=== PATIENT | male | born 1970 | race Caucasian/White ===

== ENCOUNTER 2018-04-25 15:02 | Emergency (ER) | payer BC ==
[~2018-04-25] VITALS: Ht 180.3 cm; Wt 191.0 kg
[~2018-04-25 15:02] MED LIST: ATENOLOL100 MG PO; METOLAZONE5 MG PO; SPIRONOLACTONE25 MG PO
[2018-04-25] MEDS ORDERED: HYDROCODONE/APAP 10MG-325MG TAB PO ONE (16:00)
--- NOTE | 2018-04-25 17:15 | Diagnostic Imaging Report ---
CT scan of the LEFT ANKLE, WITHOUT injected contrast. TECHNIQUE: Standard departmental protocols were used. Sagittal and coronal reformatted images were obtained. HISTORY: Pain, concern for Achilles tendon tear, pacemaker COMPARISON: None. FINDINGS: Bones: Multiple small chronic appearing fracture fragments adjacent to the tip of the medial malleolus and lateral malleolus, the largest is anterior to the tip of the medial malleolus and measures 1 x 0.5 cm. Large plantar and moderate dorsal calcaneal enthesophytes. Os trigonum. Joints: Minimal scattered degenerative changes, most notably the tibiotalar joint. Soft Tissues: CT has limited sensitivity for evaluation of the Achilles tendon, but there is no visible complete or high-grade tear. Mild lateral superficial soft tissue edema. IMPRESSION: 1. Prominent chronic calcaneal enthesopathy. 2. Small chronic appearing unhealed avulsion fractures adjacent to the tips of the medial and lateral malleoli. 3. Within the limitations of CT, no evidence of a high-grade or complete Achilles tendon tear. Signed by: Dr. Ronny Davalos D.O., M.M.M. on 04/25/2018 5:12 PM
[2018-04-25] MEDS ORDERED: ULTRAM50 MG PO (17:37)
[2018-04-25 18:38] VITALS: BP 146/73
== END 2018-04-25 19:07 | disposition home or self-care (01) ==
LOC: ER 15:02
DX: S82.65XA Nondisplaced fracture of lateral malleolus of left fibula, initial encounter for closed fracture (principal); S82.55XA Nondisplaced fracture of medial malleolus of left tibia, initial encounter for closed fracture
CPT/HCPCS: 93971; 99284

== ENCOUNTER 2019-05-16 21:17 | Inpatient (IN) | payer BC ==
[~2019-05-16] VITALS: Ht 175.3 cm; Wt 189.6 kg
[~2019-05-16 21:17] MED LIST changes: +ULTRAM50 MG PO
[2019-05-16] MEDS ORDERED: SODIUM CHLORIDE 0.9% 1000ML 1,000 ML IV STA ×3 (21:55)
[2019-05-16] MEDS ORDERED: CEFEPIME 1GM/NS 0.9% 50 ML 50 ML IV STA (21:55)
[2019-05-16] MEDS ORDERED: ACETAMINOPHEN 325 MG TAB PO STA (21:55)
[2019-05-16] MEDS ORDERED: VANCOMYCIN 1GM/NS 250 ML 250 ML IV STA (21:55)
[2019-05-16 22:04] LABS: BASOPHILS % 0.2 % (0.0-1.0); EOSINOPHILS # (AUTO) 0.2 (0.0-0.4); HEMATOCRIT 43.2 % (38.2-49.6); HEMOGLOBIN 14.7 g/dL (14.0-18.0); LYMPHOCYTES # (AUTO) 1.3 (1.0-3.2); LYMPHOCYTES % 8.3 % (18.0-39.1); MEAN CORPUSCULAR HEMOGLOBIN 31.3 pg (28-32); MEAN CORPUSCULAR VOLUME 91.9 fL (81-99); MONOCYTES # (AUTO) 0.8 (0.2-0.8); MONOCYTES % 4.7 % (4.4-11.3); NEUTROPHILS # (AUTO) 13.8 (2.1-6.9); NEUTROPHILS % 85.4 % (38.7-80.0); PLATELET COUNT 232 x10e3/uL (140-360); RED CELL DISTRIBUTION WIDTH 12.5 % (11.7-14.4)
[2019-05-16 22:05] LABS: BILIRUBIN,URINE NEGATIVE (NEGATIVE); CLARITY,URINE SL CLOUDY (CLEAR); COLOR,URINE YELLOW (YELLOW); KETONES,URINE NEGATIVE (NEGATIVE); LEUKOCYTE ESTERASE ,URINE NEGATIVE (NEGATIVE); NITRITE,URINE NEGATIVE (NEGATIVE); PROTEIN,URINE DIPSTICK NEGATIVE (NEGATIVE); URINE UROBILINOGEN 0.2 mg/dL (0.2 - 1)
[2019-05-16 22:09] LABS: BACTERIA,URINE FEW /HPF; EPITHELIAL CELLS,URINE FEW /LPF; RBC,URINE 0-5 /HPF (0-5); WBC,URINE (MAN) 0-5 /HPF (0-5)
[2019-05-16] MEDS ORDERED: MORPHINE SULFATE INJ 4 MG/ML INJ 1ML IV PRN (22:15)
[2019-05-16 22:20] LABS: ALANINE AMINOTRANSFERASE 67 IU/L (0-55); ALBUMIN 3.5 g/dL (3.5-5.0); ALKALINE PHOSPHATASE 79 IU/L (40-150); BLOOD UREA NITROGEN 20 mg/dL (7-26); BUN/CREATININE RATIO 17 (6-25); CALCIUM 9.7 mg/dL (8.4-10.2); CARBON DIOXIDE 30 mmol/L (22-29); CHLORIDE 103 mmol/L (98-107); CREATININE, SERUM 1.15 mg/dL (0.72-1.25); EST GLOMERULAR FILTRATION RATE > 60 ML/MIN (60-); GLUCOSE 104 mg/dL (74-118); SODIUM 142 mmol/L (136-145)
--- NOTE | 2019-05-16 23:03 | Diagnostic Imaging Report ---
EXAMINATION: CHEST 2 VIEWS INDICATION: ^SEPSIS ^[id number] ^2220 ^Y COMPARISON: None available FINDINGS: PA and lateral views TUBES and LINES: Left chest wall dual-lead cardiac device in place with distal leads projecting over right atrium and right ventricle. LUNGS: Limited by low lung volumes and body habitus. Central vascular congestion. PLEURA: No pleural effusion or pneumothorax. HEART AND MEDIASTINUM: The cardiomediastinal silhouette is mildly enlarged. BONES AND SOFT TISSUES: No acute osseous lesion. Soft tissues are unremarkable. UPPER ABDOMEN: No free air under the diaphragm. IMPRESSION: Mildly enlarged cardiomediastinal silhouette and central vascular congestion, accentuated by low volumes. No definite focal consolidation. Signed by: Dr. Brenton Young MD on 05/16/2019 11:00 PM
[2019-05-17] MEDS ORDERED: CALCIUM CARBONATE 500 MG CHEWABLE TABS ONE (00:34)
[2019-05-17] MEDS: SODIUM CHLORIDE 0.9% 1000ML 1,000 ML IV SCH ×4 (01:00→10:22)
[2019-05-17] MEDS: ACETAMINOPHEN 1000 MG/100 ML IV SCH ×4 (01:40→23:30)
[2019-05-17] MEDS ORDERED: ACETAMINOPHEN 1000 MG/100 ML 100 ML IV ONE (01:46)
[2019-05-17] MEDS ORDERED: CALCIUM CARBONATE 500 MG CHEWABLE TABS PO PRN (02:15)
[2019-05-17 02:36] LABS: BASOPHILS % 0.2 % (0.0-1.0); EOSINOPHILS % 0.1 % (0.0-6.0); HEMATOCRIT 38.1 % (38.2-49.6); HEMOGLOBIN 12.8 g/dL (14.0-18.0); LYMPHOCYTES # (AUTO) 0.5 (1.0-3.2); LYMPHOCYTES % 2.8 % (18.0-39.1); MEAN CORPUSCULAR HEMOGLOBIN 30.7 pg (28-32); MEAN CORPUSCULAR HGB CONC 33.6 g/dL (31-35); MEAN CORPUSCULAR VOLUME 91.4 fL (81-99); MONOCYTES % 5.5 % (4.4-11.3); NEUTROPHILS # (AUTO) 16.6 (2.1-6.9); NEUTROPHILS % 90.1 % (38.7-80.0); PLATELET COUNT 183 x10e3/uL (140-360); RED BLOOD COUNT 4.17 x10e6/uL (4.3-5.7); RED CELL DISTRIBUTION WIDTH 12.5 % (11.7-14.4)
[2019-05-17 02:51] LABS: ALANINE AMINOTRANSFERASE 58 IU/L (0-55); ALKALINE PHOSPHATASE 72 IU/L (40-150); ANION GAP 12.6 mmol/L (8-16); BLOOD UREA NITROGEN 17 mg/dL (7-26); BUN/CREATININE RATIO 16 (6-25); CALCIUM 8.7 mg/dL (8.4-10.2); CARBON DIOXIDE 22 mmol/L (22-29); CHLORIDE 107 mmol/L (98-107); CREATININE, SERUM 1.05 mg/dL (0.72-1.25); EST GLOMERULAR FILTRATION RATE > 60 ML/MIN (60-); GLUCOSE 146 mg/dL (74-118); POTASSIUM 3.6 mmol/L (3.5-5.1); SODIUM 138 mmol/L (136-145)
[2019-05-17] MEDS ORDERED: CEFEPIME HCL 1 GM VIAL IV SCH (07:00)
[2019-05-17] MEDS ORDERED: ACETAMINOPHEN 325 MG TAB PO PRN (07:15)
--- NOTE | 2019-05-17 07:55 | NUR ---
Recvd patient from ER. AAOx3, Denies any chest pain or SOB, Redness on rt leg, call light in reach, not in any distress, continue monitoring.
[2019-05-17 08:50] VITALS: BP 145/65
--- NOTE | 2019-05-17 09:07 | NUR ---
Consult called to Dr Cornejo's oncall number
[2019-05-17] MEDS ORDERED: CEFEPIME 1GM/NS 0.9% 50 ML 50 ML IV SCH (10:00)
[2019-05-17] MEDS ORDERED: ZYLOPRIM300 MG PO (11:09)
[2019-05-17] MEDS ORDERED: TRAMADOL HCL 50 MG TAB PO PRN (11:15)
[2019-05-17] MEDS ORDERED: ATENOLOL 100 MG TAB PO SCH (11:30)
[2019-05-17] MEDS: ATENOLOL 100 MG TAB PO SCH (11:30)
--- NOTE | 2019-05-17 11:51 | History and Physical ---
PRIMARY PHYSICIAN: Christopher Fitch DO. CHIEF COMPLAINT: Leg pain and swelling. HISTORY OF PRESENT ILLNESS: The patient is a 49-year-old man. He has a history of prior cellulitis in the leg that required hospitalization twice several years ago. He now complains of recurrent fever and swelling in the right leg. He has noted some pain and tenderness as well. PAST SURGICAL HISTORY: Noncontributory. PAST MEDICAL HISTORY: Cellulitis. SOCIAL HISTORY: The patient is not a drinker. He is not a smoker. FAMILY HISTORY: The patient has no significant family history. ALLERGIES: THERE ARE NO KNOWN DRUG ALLERGIES. REVIEW OF SYSTEMS: GENERAL: The patient has some fever. He has no headache. He has no neck pain. He is not complaining of chest pain or difficulty breathing. He does not have abdominal pain. He has no nausea or vomiting. He does note some tenderness and swelling in the left leg. HEENT: No facial swelling or erythema. CARDIAC: Regular rate and rhythm with normal S1, S2. LUNGS: Auscultation of lungs reveals clear breath sounds. ABDOMEN: Soft, nontender. There is no rebound or guarding. EXTREMITIES: Tenderness and swelling in the left leg. NEUROLOGIC: He has no neurological complaints. PHYSICAL EXAMINATION: VITAL SIGNS: The blood pressure is 119/73 and the saturation is 99%. The pulse is 88. His temperature is 99.1, but was 102 yesterday. HEENT: No facial swelling or erythema. CARDIAC: Regular rate and rhythm with normal S1, S2. There are no murmurs or rubs. LUNGS: Auscultation of lungs shows clear breath sounds bilaterally. There is no wheezing. ABDOMEN: Soft, nontender. There is no rebound or guarding. EXTREMITIES: No leg edema. There is tenderness and swelling in the right lower extremity. LABORATORY DATA: White blood cell count is 18.4 and the hemoglobin is 12.8. The platelet count is a 183. The BUN to creatinine ratio is 17-1.05. The other electrolytes are within normal limits. AST and ALT are mildly elevated. RADIOGRAPHIC DATA: Chest x-ray shows no active disease. IMPRESSION: 1. Cellulitis of the right lower extremity with sepsis, present on admission. 2. Severe obesity. 3. Transaminitis. 4. Hypertension. PLAN: 1. Continue antibiotics IV. 2. Await ID consultation. 3. Continue to monitor white blood cell count and creatinine. MD VIKTOR Chi/SURI /[id number]
[2019-05-17 11:56] VITALS: BP 148/60
[2019-05-17 11:59] VITALS: BP 145/65
[2019-05-17] MEDS: ALLOPURINOL 300 MG TAB PO SCH (12:00)
[2019-05-17] MEDS: VANCOMYCIN 1GM/NS 250 ML 250 ML IV SCH ×2 (12:29→22:43)
[2019-05-17] MEDS: CEFAZOLIN SOD 2 GM/D5W 50ML 50 ML IV SCH ×2 (15:21→22:48)
--- NOTE | 2019-05-17 16:15 | NUR ---
received report from [facility] for pt being transferred to room 284. awaiting pt's arrival
--- NOTE | 2019-05-17 16:31 | NUR ---
PATIENT TRANSFERRED TO ROOM 284, STABLE
--- NOTE | 2019-05-17 16:32 | NUR ---
pt arrived via wheelchair on the unit, awake, alert, oriented, no distress noted, in stable condition.
--- NOTE | 2019-05-17 16:58 | NUR ---
pt temp 101 .2 orally medicated
--- NOTE | 2019-05-17 17:02 | Consultation ---
DATE OF CONSULTATION: CHIEF COMPLAINT: Cellulitis of right lower extremity. HISTORY OF PRESENT ILLNESS: Mr. Rambo Love is well known to me from before. He is a very pleasant 49-year-old white male, who works in [employer]. He does have underlying history of obesity, cellulitis before. The patient comes in with redness and swelling of his right lower extremity, started few days ago. The patient was admitted, he had fever, chills, and fatigue upon admission, currently he is better. The patient who also was diagnosed recently with psoriasis. He had a new lesion on his right foot as well as in between the toes. He does see a senior applications engineer. The patient was admitted, started on IV antibiotic. I was asked to see him. He also have history of gout. PAST MEDICAL HISTORY: Obesity, gout, and psoriasis. PAST SURGICAL HISTORY: Denies. He also has history of recurrent cellulitis of his leg. ALLERGIES: NKA. SOCIAL HISTORY: There is no smoking, drug abuse, or alcohol abuse. FAMILY HISTORY: Hypertension. REVIEW OF SYSTEMS: HEENT: Negative. PULMONARY: Negative. CARDIAC: Negative. : Negative. Otherwise, all within normal limits. PHYSICAL EXAMINATION: GENERAL: He is currently alert, oriented, and does not seem to be in acute distress. VITAL SIGNS: Stable, afebrile. HEENT: He is not icteric. NECK: Supple. No JVD. No lymphadenopathy. No thyromegaly. CHEST: Clear bilateral. HEART: S1, S2. No S3, S4, or murmur. ABDOMEN: Obese. No tenderness. EXTREMITIES: Right lower extremity, there is erythema. There is edema noted from the ankle all the way to his knee. LABORATORY DATA: When he first came white count was 16.19, today is 18.43; hemoglobin 12.8. Sodium 138, potassium 3.6, creatinine 1.05. MEDICATION LIST: He was started on vancomycin, cefepime, atenolol. IMPRESSION: 1. Cellulitis of the right lower extremity. 2. Psoriasis. 3. Worsening leukocytosis. Blood cultures are still negative. I would recommend to put him on Ancef 2 g q.8. Recheck CBC. Recheck Chem panel. Discussed with the patient, he would need treatment for his psoriasis. He is already on treatment need to be reassessed. 4. Obesity. Continue with weight loss. He is seeing Dr. Fitch. He is following a diet and new exercise regimen. 5. Gout. 6. We will follow up with you. We will reassess again in the morning. Discussed with the patient, answered all his questions. MD MARISSA Escalante/SURI /[id number]
--- NOTE | 2019-05-17 19:01 | NUR ---
bedside walking rounds completed with hull drafter RN. pt in stable condition.
[2019-05-17 20:00] VITALS: BP 118/53
[2019-05-17 20:30] VITALS: BP 118/53
[2019-05-17] MEDS ORDERED: ZOLPIDEM TARTRATE 10 MG TAB PO PRN (21:00)
[2019-05-17] MEDS ORDERED: VANCOMYCIN 1GM/NS 250 ML 250 ML IV SCH (22:00)
[2019-05-17] MEDS ORDERED: CEFAZOLIN SOD 1 GM VIAL IV SCH (22:00)
[2019-05-18] VITALS (8 sets, daily range): BP systolic 131–152; BP diastolic 72–93
[2019-05-18] MEDS: CEFAZOLIN SOD 2 GM/D5W 50ML 50 ML IV SCH ×2 (05:11→14:40)
[2019-05-18 06:12] LABS: BASOPHILS % 0.1 % (0.0-1.0); EOSINOPHILS # (AUTO) 0.2 (0.0-0.4); HEMATOCRIT 40.8 % (38.2-49.6); HEMOGLOBIN 14.1 g/dL (14.0-18.0); LYMPHOCYTES # (AUTO) 1.4 (1.0-3.2); LYMPHOCYTES % 17.1 % (18.0-39.1); MEAN CORPUSCULAR HEMOGLOBIN 31.3 pg (28-32); MEAN CORPUSCULAR HGB CONC 34.6 g/dL (31-35); MEAN CORPUSCULAR VOLUME 90.7 fL (81-99); MONOCYTES # (AUTO) 0.7 (0.2-0.8); MONOCYTES % 8.3 % (4.4-11.3); NEUTROPHILS # (AUTO) 5.9 (2.1-6.9); NEUTROPHILS % 72.3 % (38.7-80.0); PLATELET COUNT 183 x10e3/uL (140-360); RED CELL DISTRIBUTION WIDTH 12.5 % (11.7-14.4)
[2019-05-18 06:36] LABS: ALANINE AMINOTRANSFERASE 56 IU/L (0-55); ALBUMIN 2.9 g/dL (3.5-5.0); ALBUMIN/GLOBULIN RATIO 0.8 (0.8-2.0); ALKALINE PHOSPHATASE 72 IU/L (40-150); ANION GAP 13.3 mmol/L (8-16); BLOOD UREA NITROGEN 11 mg/dL (7-26); BUN/CREATININE RATIO 10 (6-25); CALCIUM 9.5 mg/dL (8.4-10.2); CARBON DIOXIDE 26 mmol/L (22-29); CHLORIDE 99 mmol/L (98-107); CREATININE, SERUM 1.11 mg/dL (0.72-1.25); EST GLOMERULAR FILTRATION RATE > 60 ML/MIN (60-); GLUCOSE 127 mg/dL (74-118); POTASSIUM 3.3 mmol/L (3.5-5.1); SODIUM 135 mmol/L (136-145)
--- NOTE | 2019-05-18 06:50 | NUR ---
RECEIVED PATIENT RESTING IN BED. NO ACUTE DISTRESS NOTED. CALL LIGHT WITHIN REACH. BED IN THE LOWEST POSITION.
--- NOTE | 2019-05-18 07:06 | NUR ---
report given to day nurse and walking rounds complete. patient is resting comfortably in bed. bed is in lowest position and call guzman is within reach.
[2019-05-18] MEDS: ALLOPURINOL 300 MG TAB PO SCH (09:14)
[2019-05-18] MEDS ORDERED: POTASSIUM CHLORIDE 20 MEQ TAB CR PO ONE (09:15)
[2019-05-18] MEDS: ATENOLOL 100 MG TAB PO SCH (09:16)
[2019-05-18] MEDS: VANCOMYCIN 1GM/NS 250 ML 250 ML IV SCH ×2 (10:11→21:00)
--- NOTE | 2019-05-18 11:41 | Progress Note ---
DATE: SUBJECTIVE: The patient still has some swelling and tenderness in his leg, although it is improved. He does not have fevers. OBJECTIVE: VITAL SIGNS: The patient is afebrile. The vital signs are stable. HEENT: No facial swelling or erythema. CARDIAC: Regular rate and rhythm with normal S1, S2. LUNGS: Auscultation of lungs reveals clear breath sounds bilaterally. There is no wheezing. ABDOMEN: Soft, nontender. There is no rebound or guarding. EXTREMITIES: No leg edema or calf tenderness. There is no cyanosis or clubbing. SKIN: No rashes. NEUROLOGICAL: No focal abnormalities. IMPRESSION: 1. Cellulitis of the right lower extremity with sepsis, present on admission. 2. Psoriasis. 3. Severe obesity. 4. Gout. PLAN: 1. Continue IV antibiotics. 2. Await further input from Infectious Disease. MD VIKTOR Chi/SURI /[id number]
[2019-05-18] MEDS: SODIUM CHLORIDE 0.9% 1000ML 1,000 ML IV SCH (14:40)
--- NOTE | 2019-05-18 19:43 | NUR ---
REPORT GIVEN TO ONCOMING NURSE. WALKING ROUNDS DONE. PATIENT IS RESTING IN BED. NO ACUTE DISTRESS NOTED. FAMILY AT BEDSIDE. CALL LIGHT WITHIN REACH. BED IN THE LOWEST POSITION.
--- NOTE | 2019-05-18 19:46 | NUR ---
RECEIVED PT SITTING ON THE CHAIR AXO3 RT LEG SWOLLEN AND RED IV AT RT AC NS AT 125 CC/HR .TELE 22 SR DENIES PAIN AT THIS TIME .WAITING FOR PICC LINE INSERTION .FAMILY AT THE BEDSIDE .CALL LIGHT WITH IN REACH .CONTINUE TO MONITOR
--- NOTE | 2019-05-18 20:04 | Progress Note ---
DATE: SUBJECTIVE: Mr. Ricks is doing better. Has no complaint. However, the leg remains red, remains swollen, if anything I think looks worse to me. The patient has no other complaints. REVIEW OF SYSTEMS: HEENT: Negative. PULMONARY: Negative. CARDIAC: Negative. Otherwise, unremarkable. LABORATORY DATA: His lab reviewed. His white count came down to 8.9. His hemoglobin 14. Sodium 135, potassium 3.3, and creatinine 1.1. PHYSICAL EXAMINATION: GENERAL: He is currently alert, oriented, does not seem to be in acute distress. VITAL SIGNS: Stable. HEENT: Not icteric. NECK: Supple. CHEST: Clear. EXTREMITIES: His leg remains red and swollen as mentioned above. IMPRESSION: 1. Cellulitis of the leg. We will increase his vancomycin to 2 g IV q.12h, obtain a level with the fourth toes. We will get a PICC line. We will arrange home IV antibiotic. Discussed with the patient. We will reassess in the morning. 2. Morbidly obese patient. 3. We will reassess in the morning. 4. Psoriasis. MD MARISSA Escalante/MODL /[id number]
--- NOTE | 2019-05-18 21:59 | Diagnostic Imaging Report ---
EXAMINATION: CHEST XRAY LINE PLACEMENT INDICATION: picc line placed COMPARISON: Chest radiograph 05/16/2019 FINDINGS: AP view Several overlying hall monitor leads limit evaluation. TUBES and LINES: Right PICC tip at the superior aspect of the right atrium. Left chest wall cardiac device with leads in the right atrium. LUNGS: Low lung volumes. No consolidations.. Prominent central pulmonary vasculature. PLEURA: No pleural effusion or pneumothorax. HEART AND MEDIASTINUM: The cardiomediastinal silhouette is unremarkable. BONES AND SOFT TISSUES: No acute osseous lesion. Soft tissues are unremarkable. UPPER ABDOMEN: No free air under the diaphragm. IMPRESSION: 1. Right PICC tip at the superior aspect of the right atrium. 2. Mild cardiomegaly and pulmonary vascular congestion. Signed by: Rajendra Way DO on 05/18/2019 9:55 PM
--- NOTE | 2019-05-18 23:59 | Diagnostic Imaging Report ---
EXAMINATION: CHEST XRAY LINE PLACEMENT INDICATION: ^PICC LINE PLACEMENT COMPARISON: Chest radiograph 05/18/2019 FINDINGS: AP view TUBES and LINES: Right upper extremity PICC tip terminates at the superior cavoatrial junction. LUNGS: Lungs are well inflated. Lungs are clear. There is no evidence of pneumonia or pulmonary edema. Central pulmonary vascular prominence. PLEURA: No pleural effusion or pneumothorax. HEART AND MEDIASTINUM: The cardiomediastinal silhouette is mildly enlarged. BONES AND SOFT TISSUES: No acute osseous lesion. Soft tissues are unremarkable. UPPER ABDOMEN: No free air under the diaphragm. IMPRESSION: 1. Right upper extremity PICC tip terminates at the superior cavoatrial junction. 2. Mild cardiomegaly and pulmonary vascular congestion. Signed by: Rajendra Way DO on 05/18/2019 11:56 PM
[2019-05-19] VITALS: BP 148/75
[2019-05-19] MEDS: SODIUM CHLORIDE 0.9% 1000ML 1,000 ML IV SCH ×2 (01:27→06:35)
[2019-05-19 04:00] VITALS: BP 125/77
--- NOTE | 2019-05-19 07:10 | NUR ---
Received patient lying in bed with eyes open. Respiration even and unlabored without SOB. Call light in reach. Reilly pain at this time.
--- NOTE | 2019-05-19 07:16 | NUR ---
BED SIDE REPORT GIVEN TO THE ONCOMING NURSE
[2019-05-19 07:57] VITALS: BP 141/83
[2019-05-19] MEDS: VANCOMYCIN 1GM/NS 250 ML 250 ML IV SCH (08:50)
[2019-05-19] MEDS: ATENOLOL 100 MG TAB PO SCH (08:51)
[2019-05-19] MEDS: ALLOPURINOL 300 MG TAB PO SCH (08:51)
--- NOTE | 2019-05-19 08:57 | Discharge Summary ---
DISCHARGE DIAGNOSES: 1. Cellulitis of lower extremity with sepsis present on admission. 2. Psoriasis. 3. Severe obesity. 4. Gout. 5. Hypokalemia. DISCHARGE MEDICATIONS: 1. Allopurinol 300 mg p.o. daily. 2. Atenolol 100 mg p.o. daily. 3. Spironolactone 25 mg p.o. p.r.n. 4. Tramadol 50 mg p.o. q.6 p.r.n. 5. Vancomycin 2 mg IV daily through Dr. Cornejo's office. HISTORY OF PRESENT ILLNESS: The patient is a 49-year-old man. He has a history of recurrent cellulitis in the legs. He came in complaining of worsening, swelling, and tenderness in the right lower extremity. He reported some fever. HOSPITAL COURSE: The patient was admitted. He initially had a white count of 18. He received IV fluids as well as IV antibiotics. He improved with this and felt much better. He was seen in consultation by Infectious Disease. Arrangements were made for him to receive IV antibiotics as an outpatient. DISPOSITION: The patient will be discharged home and will follow up with Dr. Cornejo. MD VIKTOR Chi/SURI /[id number]
[2019-05-19 10:02] VITALS: BP 141/83
--- NOTE | 2019-05-19 11:45 | NUR ---
Patient is discharging today to home. Transported via wheelchair to private vehicle. Belongings are with family member. Right upper PICC is in placed, intact and patent and patient is going home with it as ordered.
== END 2019-05-19 11:54 | disposition home or self-care (01) | DRG 872 ==
LOC: ER 21:17 → ERHOLD 22:30 → IMCU 05-17 07:56 → MED/SURG3 05-17 16:30
PROVIDERS: ADMIT Internal Medicine Critical Care Medicine; ATTEND Internal Medicine Critical Care Medicine
PROC: 02HV33Z Insertion of Infusion Device into Superior Vena Cava, Percutaneous Approach (ICD-10-PCS; principal; 2019-05-18)
DX: A41.9 Sepsis, unspecified organism (principal); L03.115 Cellulitis of right lower limb; Z68.44 Body mass index [BMI] 60.0-69.9, adult; M10.9 Gout, unspecified; E87.6 Hypokalemia; L40.9 Psoriasis, unspecified; E66.01 Morbid (severe) obesity due to excess calories; E87.8 Other disorders of electrolyte and fluid balance, not elsewhere classified
CPT/HCPCS: 36415; 36569; 71045; 71046; 80053; 80202; 81001; 83605; 85025; 87040; 87086; 93005; 99284; J0690; J0692; J3370; J7030

== ENCOUNTER 2021-07-03 21:01 | Inpatient (IN) | payer BC, OTHER ==
[~2021-07-03] VITALS: Ht 177.8 cm; Wt 198.3 kg
[~2021-07-03 21:01] MED LIST changes: +ZYLOPRIM300 MG PO
[2021-07-03] MEDS ORDERED: ACETAMINOPHEN 325 MG TAB PO ONE (21:30)
[2021-07-03 21:56] LABS: ALBUMIN 3.8 g/dL (3.5-5.0); ANION GAP 15.8 mmol/L (8-16); CALCIUM 9.4 mg/dL (8.4-10.2); CREATININE, SERUM 1.11 mg/dL (0.72-1.25); POTASSIUM 3.8 mmol/L (3.5-5.1)
[2021-07-03 21:59] LABS: BASOPHILS # (AUTO) 0.1 (0.0-0.1); BASOPHILS % 0.3 % (0.0-1.0); EOSINOPHILS # (AUTO) 0.2 (0.0-0.4); EOSINOPHILS % 1.1 % (0.0-6.0); HEMATOCRIT 44.5 % (38.2-49.6); HEMOGLOBIN 14.8 g/dL (14.0-18.0); LYMPHOCYTES # (AUTO) 1.4 (1.0-3.2); LYMPHOCYTES % 8.6 % (18.0-39.1); MEAN CORPUSCULAR HEMOGLOBIN 30.8 pg (28-32); MEAN CORPUSCULAR HGB CONC 33.3 g/dL (31-35); MEAN CORPUSCULAR VOLUME 92.7 fL (81-99); MONOCYTES # (AUTO) 0.9 (0.2-0.8); MONOCYTES % 5.5 % (4.4-11.3); NEUTROPHILS # (AUTO) 13.3 (2.1-6.9); NEUTROPHILS % 84.1 % (38.7-80.0); PLATELET COUNT 250 x10e3/uL (140-360)
[2021-07-03] MEDS ORDERED: SODIUM CHLORIDE 0.9% 50ML 50 ML ONE (22:27)
[2021-07-03] MEDS ORDERED: IOPAMIDOL 370 MG/ML 200 ML INFUS..BTL INJ ONE (22:28)
[2021-07-03 22:54] LABS: CLARITY,URINE CLEAR (CLEAR); COLOR,URINE YELLOW (YELLOW); KETONES,URINE NEGATIVE (NEGATIVE); LEUKOCYTE ESTERASE ,URINE NEGATIVE (NEGATIVE); NITRITE,URINE NEGATIVE (NEGATIVE); PROTEIN,URINE DIPSTICK NEGATIVE (NEGATIVE); URINE UROBILINOGEN 0.2 mg/dL (0.2 - 1)
[2021-07-03 22:56] LABS: BACTERIA,URINE RARE /HPF; EPITHELIAL CELLS,URINE RARE /LPF; WBC,URINE (MAN) 0-5 /HPF (0-5)
[2021-07-03] MEDS ORDERED: ONDANSETRON HCL INJ 2MG/ML 2ML 2 MG/ML VIAL IV PRN (23:15)
[2021-07-03] MEDS: CEFTRIAXONE 1 GM in SODIUM CHLORIDE 0.9% 50ML 50 ML IV SCH (23:40)
[2021-07-03] MEDS: SODIUM CHLORIDE 0.9% 1000ML 1,000 ML IV SCH (23:40)
[2021-07-04] VITALS (7 sets, daily range): BP systolic 120–142; BP diastolic 59–78
[2021-07-04 01:38] LABS: CREATINE KINASE MB 0.7 ng/mL (0-5.0)
[2021-07-04] MEDS: ACETAMINOPHEN 325 MG TAB PO PRN ×2 (02:00→08:31)
[2021-07-04] MEDS: SODIUM CHLORIDE 0.9% 1000ML 1,000 ML IV SCH ×3 (02:52→14:48)
[2021-07-04] MEDS ORDERED: ASPIRIN325 MG PO (06:26)
[2021-07-04] MEDS ORDERED: CRESTOR20 MG PO (06:26)
[2021-07-04 07:34] LABS: ALBUMIN 3.2 g/dL (3.5-5.0); ANION GAP 13.7 mmol/L (8-16); CALCIUM 8.2 mg/dL (8.4-10.2); CREATININE, SERUM 0.88 mg/dL (0.72-1.25); POTASSIUM 3.7 mmol/L (3.5-5.1)
[2021-07-04 08:10] LABS: BASOPHILS % 0.3 % (0.0-1.0); EOSINOPHILS % 0.3 % (0.0-6.0); HEMATOCRIT 41.4 % (38.2-49.6); HEMOGLOBIN 13.9 g/dL (14.0-18.0); LYMPHOCYTES % 6.8 % (18.0-39.1); MEAN CORPUSCULAR HEMOGLOBIN 30.7 pg (28-32); MEAN CORPUSCULAR HGB CONC 33.6 g/dL (31-35); MEAN CORPUSCULAR VOLUME 91.4 fL (81-99); MONOCYTES # (AUTO) 0.7 (0.2-0.8); MONOCYTES % 5.2 % (4.4-11.3); NEUTROPHILS # (AUTO) 12.2 (2.1-6.9); PLATELET COUNT 196 x10e3/uL (140-360); RED BLOOD COUNT 4.53 x10e6/uL (4.3-5.7); RED CELL DISTRIBUTION WIDTH 12.1 % (11.7-14.4)
[2021-07-04 08:25] LABS: CREATINE KINASE MB 0.4 ng/mL (0-5.0)
[2021-07-04] MEDS ORDERED: CRESTOR 10MG PO SCH (10:00)
[2021-07-04] MEDS ORDERED: IBUPROFEN 400 MG TAB PO PRN (13:15)
[2021-07-04] MEDS ORDERED: GUAIFENESIN 600MG/DEXTROMETHORPHAN 30MG TABSR PO PRN (13:15)
[2021-07-04] MEDS: FAMOTIDINE 20 MG TAB PO SCH (17:08)
[2021-07-04 17:10] LABS: CREATINE KINASE MB 0.5 ng/mL (0-5.0)
[2021-07-04] MEDS: CLINDAMYCIN PHOS 900MG/ 50ML 50 ML IV SCH (18:30)
[2021-07-04] MEDS: CEFTRIAXONE 1 GM in SODIUM CHLORIDE 0.9% 50ML 50 ML IV SCH (22:59)
[2021-07-05] VITALS (8 sets, daily range): BP systolic 137–169; BP diastolic 72–94
[2021-07-05] MEDS: CLINDAMYCIN PHOS 900MG/ 50ML 50 ML IV SCH ×3 (02:55→17:21)
[2021-07-05 04:59] LABS: BASOPHILS % 0.2 % (0.0-1.0); EOSINOPHILS # (AUTO) 0.1 (0.0-0.4); EOSINOPHILS % 1.5 % (0.0-6.0); HEMATOCRIT 39.3 % (38.2-49.6); HEMOGLOBIN 13.1 g/dL (14.0-18.0); LYMPHOCYTES # (AUTO) 1.5 (1.0-3.2); LYMPHOCYTES % 17.4 % (18.0-39.1); MEAN CORPUSCULAR HEMOGLOBIN 30.8 pg (28-32); MEAN CORPUSCULAR HGB CONC 33.3 g/dL (31-35); MEAN CORPUSCULAR VOLUME 92.3 fL (81-99); MONOCYTES # (AUTO) 0.8 (0.2-0.8); NEUTROPHILS # (AUTO) 6.3 (2.1-6.9); NEUTROPHILS % 71.7 % (38.7-80.0); PLATELET COUNT 174 x10e3/uL (140-360); RED BLOOD COUNT 4.26 x10e6/uL (4.3-5.7); RED CELL DISTRIBUTION WIDTH 12.1 % (11.7-14.4)
[2021-07-05 05:23] LABS: ALBUMIN 2.9 g/dL (3.5-5.0); ALBUMIN/GLOBULIN RATIO 0.9 (0.8-2.0); ANION GAP 13.6 mmol/L (8-16); CHOL/HDL RATIO 2.1 (3.9-4.7); CREATININE, SERUM 0.87 mg/dL (0.72-1.25); MAGNESIUM 1.9 MG/DL (1.3-2.1); POTASSIUM 3.6 mmol/L (3.5-5.1)
[2021-07-05] MEDS: SODIUM CHLORIDE 0.9% 1000ML 1,000 ML IV SCH ×2 (07:55→15:04)
[2021-07-05] MEDS: FAMOTIDINE 20 MG TAB PO SCH ×2 (07:55→17:21)
[2021-07-05] MEDS: ATENOLOL 100 MG TAB PO SCH (09:43)
[2021-07-05] MEDS: ASPIRIN 325 MG TAB PO SCH (09:43)
[2021-07-05] MEDS: CEFTRIAXONE 1 GM in SODIUM CHLORIDE 0.9% 50ML 50 ML IV SCH (23:00)
[2021-07-06 00:03] VITALS: BP 147/66
[2021-07-06] MEDS: CLINDAMYCIN PHOS 900MG/ 50ML 50 ML IV SCH ×2 (02:00→09:58)
[2021-07-06 04:56] LABS: BASOPHILS % 0.4 % (0.0-1.0); EOSINOPHILS # (AUTO) 0.2 (0.0-0.4); EOSINOPHILS % 2.8 % (0.0-6.0); HEMATOCRIT 40.1 % (38.2-49.6); HEMOGLOBIN 13.3 g/dL (14.0-18.0); LYMPHOCYTES # (AUTO) 1.9 (1.0-3.2); LYMPHOCYTES % 26.1 % (18.0-39.1); MEAN CORPUSCULAR HEMOGLOBIN 30.5 pg (28-32); MEAN CORPUSCULAR HGB CONC 33.2 g/dL (31-35); MONOCYTES # (AUTO) 0.7 (0.2-0.8); MONOCYTES % 9.5 % (4.4-11.3); NEUTROPHILS # (AUTO) 4.3 (2.1-6.9); NEUTROPHILS % 60.9 % (38.7-80.0); PLATELET COUNT 175 x10e3/uL (140-360); RED BLOOD COUNT 4.36 x10e6/uL (4.3-5.7); RED CELL DISTRIBUTION WIDTH 12.1 % (11.7-14.4)
[2021-07-06 05:27] LABS: ALBUMIN 2.9 g/dL (3.5-5.0); ALBUMIN/GLOBULIN RATIO 0.9 (0.8-2.0); ANION GAP 13.8 mmol/L (8-16); CALCIUM 8.4 mg/dL (8.4-10.2); CREATININE, SERUM 0.98 mg/dL (0.72-1.25); POTASSIUM 3.8 mmol/L (3.5-5.1)
[2021-07-06 06:02] VITALS: BP 143/67
[2021-07-06 07:52] VITALS: BP 155/86
[2021-07-06] MEDS: FAMOTIDINE 20 MG TAB PO SCH (08:17)
[2021-07-06] MEDS ORDERED: CLINDAMYCIN HC150 MG PO (09:02)
[2021-07-06] MEDS ORDERED: FUROSEMIDE INJ 10 MG/ML 4 ML VIAL IV ONE (09:15)
[2021-07-06] MEDS ORDERED: POTASSIUM CHLORIDE 10MEQ EA PO ONE (09:15)
[2021-07-06] MEDS: ATENOLOL 100 MG TAB PO SCH (09:58)
[2021-07-06] MEDS: ASPIRIN 325 MG TAB PO SCH (09:58)
[2021-07-07] MEDS ORDERED: LORATADINE/PSEUDOEPHEDRINE 24 HR SR TAB PO SCH (09:00)
== END 2021-07-06 11:51 | disposition home or self-care (01) | DRG 872 ==
LOC: ER 21:20 → ERHOLD 23:11 → MED/SURG3 07-04 00:53 → OBSVTOIN 07-05 13:24
PROVIDERS: ADMIT Internal Medicine; ATTEND Internal Medicine
DX: A41.9 Sepsis, unspecified organism (principal); L03.317 Cellulitis of buttock; N44.00 Torsion of testis, unspecified; Z68.44 Body mass index [BMI] 60.0-69.9, adult; I47.2 Ventricular tachycardia; Z95.0 Presence of cardiac pacemaker; R10.30 Lower abdominal pain, unspecified; E66.01 Morbid (severe) obesity due to excess calories; J01.90 Acute sinusitis, unspecified; L40.9 Psoriasis, unspecified; G47.30 Sleep apnea, unspecified; Z20.822 Contact with and (suspected) exposure to COVID-19; M10.9 Gout, unspecified; I11.0 Hypertensive heart disease with heart failure; I50.9 Heart failure, unspecified
CPT/HCPCS: 36415; 71045; 74177; 80053; 80061; 81001; 82550; 82553; 83036; 83605; 83735; 84484; 85025; 87040; 87086; 87400; 93005; 94799; 96360; 99284; G0378; J0696; J1940; J7030; Q9967; U0002

== ENCOUNTER 2021-09-22 13:08 | Emergency (ER) | payer OTHER ==
[~2021-09-22] VITALS: Ht 170.2 cm; Wt 198.2 kg
[~2021-09-22 13:08] MED LIST changes: +ASPIRIN325 MG PO; +CLINDAMYCIN HC150 MG PO; +CRESTOR20 MG PO
== END 2021-09-22 14:22 | disposition home or self-care (01) ==
LOC: ER 14:21
DX: U07.1 COVID-19 (principal); R05.9 Cough, unspecified; R53.81 Other malaise; R19.7 Diarrhea, unspecified; I10 Essential (primary) hypertension; E78.5 Hyperlipidemia, unspecified; I50.9 Heart failure, unspecified; Z95.810 Presence of automatic (implantable) cardiac defibrillator
CPT/HCPCS: 99282

== ENCOUNTER 2021-10-04 17:07 | Emergency (ER) | payer OTHER ==
[~2021-10-04] VITALS: Ht 170.2 cm; Wt 193.0 kg
[2021-10-04] MEDS ORDERED: ONDANSETRON HCL INJ 2MG/ML 2ML 2 MG/ML VIAL IV STA (17:28)
[2021-10-04] MEDS ORDERED: DICYCLOMINE HCL 20 MG/2 ML VIAL IM ONE (17:30)
[2021-10-04 17:52] LABS: BASOPHILS % 0.4 % (0.0-1.0); EOSINOPHILS # (AUTO) 0.1 (0.0-0.4); EOSINOPHILS % 1.7 % (0.0-6.0); HEMATOCRIT 44.3 % (38.2-49.6); HEMOGLOBIN 15.6 g/dL (14.0-18.0); LYMPHOCYTES # (AUTO) 1.4 (1.0-3.2); LYMPHOCYTES % 18.7 % (18.0-39.1); MEAN CORPUSCULAR HEMOGLOBIN 30.8 pg (28-32); MEAN CORPUSCULAR HGB CONC 35.2 g/dL (31-35); MEAN CORPUSCULAR VOLUME 87.4 fL (81-99); MONOCYTES # (AUTO) 0.4 (0.2-0.8); NEUTROPHILS # (AUTO) 5.3 (2.1-6.9); NEUTROPHILS % 72.7 % (38.7-80.0); PLATELET COUNT 301 x10e3/uL (140-360); RED BLOOD COUNT 5.07 x10e6/uL (4.3-5.7); RED CELL DISTRIBUTION WIDTH 11.7 % (11.7-14.4)
[2021-10-04 17:56] LABS: CLARITY,URINE SL CLOUDY (CLEAR); COLOR,URINE STRAW (YELLOW); KETONES,URINE NEGATIVE (NEGATIVE); LEUKOCYTE ESTERASE ,URINE NEGATIVE (NEGATIVE); NITRITE,URINE NEGATIVE (NEGATIVE); PROTEIN,URINE DIPSTICK NEGATIVE (NEGATIVE); URINE UROBILINOGEN 0.2 mg/dL (0.2 - 1)
[2021-10-04 18:07] LABS: AMORPHOUS SEDIMENT,URINE MANY (FEW); BACTERIA,URINE RARE /HPF
[2021-10-04 18:10] LABS: ALBUMIN 3.5 g/dL (3.5-5.0); ALBUMIN/GLOBULIN RATIO 0.9 (0.8-2.0); ANION GAP 13.8 mmol/L (8-16); CALCIUM 8.9 mg/dL (8.4-10.2); CREATININE, SERUM 0.85 mg/dL (0.72-1.25); POTASSIUM 3.8 mmol/L (3.5-5.1)
[2021-10-04 18:11] LABS: AMYLASE 41 U/L (25-125); LIPASE 21 U/L (8-78)
[2021-10-04 18:17] LABS: CREATINE KINASE MB 0.5 ng/mL (0-5.0)
== END 2021-10-04 21:15 | disposition home or self-care (01) ==
LOC: ER 17:28
DX: R10.11 Right upper quadrant pain (principal); R11.2 Nausea with vomiting, unspecified; R19.7 Diarrhea, unspecified; I10 Essential (primary) hypertension; I50.9 Heart failure, unspecified; E78.5 Hyperlipidemia, unspecified; G47.00 Insomnia, unspecified; F41.9 Anxiety disorder, unspecified; Z95.810 Presence of automatic (implantable) cardiac defibrillator
CPT/HCPCS: 36415; 76705; 80053; 81001; 82150; 82550; 82553; 83690; 84484; 85025; 99284; C9113; J0500; J2405; 93005

== ENCOUNTER 2022-04-10 20:29 | Emergency (ER) | payer OTHER ==
[~2022-04-10] VITALS: Ht 170.2 cm; Wt 192.8 kg
== END 2022-04-10 22:53 | disposition home or self-care (01) ==
LOC: ER 20:34
DX: M79.632 Pain in left forearm (principal); I10 Essential (primary) hypertension; I50.9 Heart failure, unspecified; E78.5 Hyperlipidemia, unspecified; F41.9 Anxiety disorder, unspecified; G47.00 Insomnia, unspecified; Z95.810 Presence of automatic (implantable) cardiac defibrillator
CPT/HCPCS: 93971; 99283

== ENCOUNTER 2022-07-12 09:17 | Emergency (ER) | payer OTHER ==
[~2022-07-12] VITALS: Ht 170.2 cm; Wt 192.8 kg
[2022-07-12 09:49] LABS: BASOPHILS % 0.6 % (0.0-1.0); EOSINOPHILS # (AUTO) 0.2 (0.0-0.4); EOSINOPHILS % 3.5 % (0.0-6.0); HEMATOCRIT 46.1 % (38.2-49.6); LYMPHOCYTES # (AUTO) 1.6 (1.0-3.2); LYMPHOCYTES % 24.2 % (18.0-39.1); MEAN CORPUSCULAR HEMOGLOBIN 31.4 pg (28-32); MEAN CORPUSCULAR HGB CONC 32.5 g/dL (31-35); MEAN CORPUSCULAR VOLUME 96.4 fL (81-99); MONOCYTES # (AUTO) 0.4 (0.2-0.8); MONOCYTES % 6.7 % (4.4-11.3); NEUTROPHILS # (AUTO) 4.2 (2.1-6.9); NEUTROPHILS % 64.8 % (38.7-80.0); PLATELET COUNT 217 x10e3/uL (140-360); RED BLOOD COUNT 4.78 x10e6/uL (4.3-5.7); RED CELL DISTRIBUTION WIDTH 11.8 % (11.7-14.4)
[2022-07-12 10:11] LABS: ALBUMIN 3.9 g/dL (3.5-5.0); ALBUMIN/GLOBULIN RATIO 1.2 (0.8-2.0); ANION GAP 12.9 mmol/L (8-16); CALCIUM 8.8 mg/dL (8.4-10.2); POTASSIUM 3.9 mmol/L (3.5-5.1)
== END 2022-07-12 10:43 | disposition home or self-care (01) ==
LOC: ER 09:25
DX: R00.2 Palpitations (principal); Z95.0 Presence of cardiac pacemaker; I11.0 Hypertensive heart disease with heart failure; I50.9 Heart failure, unspecified; E78.5 Hyperlipidemia, unspecified; Z79.82 Long term (current) use of aspirin; Z79.899 Other long term (current) drug therapy
CPT/HCPCS: 36415; 71045; 80053; 84484; 85025; 93005; 99284